=== PATIENT | male | born 1965 | race Caucasian/White ===

== ENCOUNTER 2016-12-14 05:41 | Emergency (ER) | payer MEDICAID ==
[~2016-12-14] VITALS: Ht 185.4 cm; Wt 97.0 kg
[2016-12-14] MEDS ORDERED: IBUPROFEN 600MG TABLET PO ONE (06:15)
[2016-12-14 06:27] VITALS: BP 105/56
== END 2016-12-14 06:53 | disposition home or self-care (01) ==
LOC: ER 05:41
DX: K46.9 Unspecified abdominal hernia without obstruction or gangrene (principal); F17.200 Nicotine dependence, unspecified, uncomplicated; F12.10 Cannabis abuse, uncomplicated; F19.10 Other psychoactive substance abuse, uncomplicated; Z98.890 Other specified postprocedural states
CPT/HCPCS: 99282

== ENCOUNTER 2022-12-24 16:07 | Emergency (ER) | payer MEDICAID, OTHER ==
[~2022-12-24] VITALS: Ht 177.8 cm; Wt 105.0 kg
[~2022-12-24 16:07] MED LIST: METH-819 GT
[2022-12-24 16:36] VITALS: BP 148/46; PULSE 58; RESP 18; TEMP 98.3; O2SAT 100
[2022-12-24] MEDS ORDERED: LIDOCAINE HCL/PF 1% 10 MG/ML 5ML VIAL INFIL ONE (18:15)
[2022-12-24] MEDS ORDERED: SULF1TAB48 MT (18:54)
[2022-12-24] MEDS ORDERED: AMOX1TAB16 MT (18:57)
[2022-12-24] MEDS ORDERED: SULFAMETHOXAZOLE/TRIMETHOPRIM 800/160MG TABLET PO ONE (19:00)
[2022-12-24] MEDS ORDERED: AMOXICILLIN/POTASSIUM CLAVULANATE 875/125MG TAB PO ONE (19:00)
[2022-12-24] MEDS ORDERED: IBUPROFEN 800MG TABLET PO ONE (19:00)
[2022-12-24] MEDS ORDERED: IBUP-2030 MT (19:22)
== END 2022-12-24 19:46 | disposition home or self-care (01) ==
LOC: ER 16:07
DX: L02.413 Cutaneous abscess of right upper limb (principal); F12.10 Cannabis abuse, uncomplicated
CPT/HCPCS: 10060; 99283; J3490; Z7610 ×3

== ENCOUNTER 2024-04-20 17:43 | Emergency (ER) | payer MEDICAID ==
[~2024-04-20] VITALS: Ht 185.4 cm; Wt 113.3 kg
[~2024-04-20 17:43] MED LIST changes: +AMOX1TAB16 MT; +IBUP-2030 MT; +SULF1TAB48 MT
[2024-04-20 17:53] VITALS: O2SAT 100
[2024-04-20] MEDS ORDERED: NAPR-681 PO (21:33)
[2024-04-20 21:52] VITALS: BP 118/70; PULSE 41; RESP 18; TEMP 36.7; O2SAT 100
== END 2024-04-20 21:58 | disposition home or self-care (01) ==
LOC: ER 17:43
DX: S80.01XA Contusion of right knee, initial encounter (principal); M17.11 Unilateral primary osteoarthritis, right knee; M25.561 Pain in right knee; I10 Essential (primary) hypertension; F12.90 Cannabis use, unspecified, uncomplicated; X58.XXXA Exposure to other specified factors, initial encounter; Y93.89 Activity, other specified; Y92.89 Other specified places as the place of occurrence of the external cause; Y99.8 Other external cause status
CPT/HCPCS: 73560; 99283